=== PATIENT | female | born 1980 | race Caucasian/White ===

== ENCOUNTER 2016-12-22 10:21 | Inpatient (IN) | payer BC, OTHER ==
[~2016-12-22] VITALS: Ht 167.6 cm; Wt 74.0 kg
[2016-12-22 10:57] VITALS: Ht 167.6 cm; Wt 74.0 kg
[2016-12-22] MEDS ORDERED: LACTATED RINGER'S 1,000 ML IV ONE (11:30)
[2016-12-22 11:59] LABS: ADD UMIC YES; UR ASCORBIC ACID NEGATIVE (NEGATIVE); UR BACTERIA FEW /HPF (NONE SEEN); UR BILIRUBIN (Dip) NEGATIVE (NEGATIVE); UR BLOOD (Dip) NEGATIVE (NEGATIVE); UR CLARITY SLIGHTLY CLOUDY (CLEAR); UR COLOR AMBER (YELLOW); UR GLUCOSE (Dip) NEGATIVE (NEGATIVE); UR KETONES (Dip) NEGATIVE (NEGATIVE); UR LEUKOCYTE ESTERASE (Dip) 2+ Leu/ul (NEGATIVE); UR MUCUS MODERATE /HPF (NONE SEEN); UR NITRITE (Dip) NEGATIVE (NEGATIVE); UR RBC 3 /HPF (0-5); UR SQUAMOUS EPITHELIAL CELL FEW /HPF (FEW); UR TOTAL PROTEIN (Dip) 1+ mg/dl (NEGATIVE); UR UROBILINOGEN (Dip) 1+ mg/dL (NEGATIVE)
[2016-12-22] MEDS: LACTATED RINGER'S 1,000 ML IV SCH ×2 (13:15→21:08)
[2016-12-22 13:29] LABS: BASOPHILS % 0.3 % (0.0-2.0); EOSINOPHILS # 0.1 10^3/ul (0.0-0.5); EOSINOPHILS % 0.5 % (0.0-7.0); HEMOGLOBIN 10.8 g/dl (12.0-16.0); LYMPHOCYTES # 1.9 10^3/ul (0.8-2.9); LYMPHOCYTES % 15.4 % (15.0-51.0); MEAN CORPUSCULAR HEMOGLOBIN 26.9 pg (29.0-33.0); MEAN CORPUSCULAR HGB CONC 31.8 g/dl (32.0-37.0); MEAN CORPUSCULAR VOLUME 84.8 fl (82.0-101.0); MEAN PLATELET VOLUME 10.5 fl (7.4-10.4); MONOCYTE # 0.9 10^3/ul (0.3-0.9); MONOCYTES % 7.5 % (0.0-11.0); NEUTROPHIL # 9.4 10^3/ul (1.6-7.5); NEUTROPHILS % 75.3 % (39.0-77.0); PLATELET COUNT 341 10^3/UL (140-415); RED BLOOD COUNT 4.01 10^6/ul (4.20-5.40); RED CELL DISTRIBUTION WIDTH 14.1 % (11.5-14.5); WHITE BLOOD COUNT 12.5 10^3/ul (4.8-10.8)
[2016-12-22] MEDS ORDERED: OXYTOCIN 30 UNITS/LR 500 ML IV PRN (13:30)
[2016-12-22] MEDS ORDERED: OXYTOCIN 30 UNITS/LR 500 ML IV SCH (13:30)
[2016-12-22] MEDS ORDERED: METHYLERGONOVINE 0.2 MG INJ IM PRN (13:30)
[2016-12-22] MEDS ORDERED: CEFAZOLIN 2 GM/50 ML (PMX) 50 ML IV SCH (13:30)
[2016-12-22] MEDS ORDERED: CARBOPROST 250 MCG INJ IM PRN (13:30)
[2016-12-22] MEDS ORDERED: MISOPROSTOL 200 MCG TAB PR PRN (13:30)
[2016-12-22 13:46] LABS: INR 0.91; PARTIAL THROMBOPLASTIN TIME 26.7 Sec (25.0-35.0); PROTIME 12.2 Sec (12.2-14.2)
--- NOTE | 2016-12-22 15:07 | TRIAGE ---
OB Triage Datetime Report Generated by CPN: 12/22/2016 15:06 Datetime: 12/22/2016 14:50 Time of Arrival: 12/22/2016 12:50 EGA: 37.6 Arrived By: Transfer Arrived From: Other Unit in Hospital Datetime: 12/22/2016 14:45 Assessment Type: Admission Assessment Time of Arrival: 12/22/2016 10:15 EGA: 37.6 Arrived By: Ambulatory Arrived From: Home Chief Complaint: UC _ R/O SROM Movement: Present Contractions: Regular Time Contractions Began: 12/21/2016 23:00 Rupture of Membranes: Unsure Vaginal Bleeding: None Vaginal Discharge: Denies Recent Sexual Intercouse: Denies Abdominal Trauma: Not Applicable Time Provider Notified: 12/22/2016 11:03 Provider Notified: Delshad Initial Plan: NST, ROM plus, UA Maternal Assessment Level of Consciousness: Fully Conscious DTR's/Clonus: DTRs 2+; No Clonus Headache: Denies Blurred Vision: No Respiratory Effort: Unlabored; Regular Rhythm; Equal Expansion Breath Sounds, Left: Clear and Equal Breath Sounds, Right: Clear and Equal Nausea/Vomiting: Denies RUQ Epigastric Pain: Denies Lower Extremities Edema: None Degree: None Upper Extremities Edema: None Degree: None Facial Edema: None Fall Risk Assessment History of Falling: (0) No Secondary Diagnosis: (0) No Ambulatory Aid: (0) Bedrest/Nurse Assist IV Therapy: (20) Yes Gait: (0) Normal/Bedrest/Immobile Mental Status: (0) Oriented to Own Ability Fall Score: 20 Fall Risk Score Definition: No Risk: No action required Pain Assessment Pain Scale: 3 Pain Presence: Intermittent Pain Type: Contraction Pain Location: Abdomen; Back Pain Goal: 0 Datetime: 12/22/2016 10:45 Assessment Type: Triage Maternal Assessment Level of Consciousness: Fully Conscious DTR's/Clonus: DTRs 2+; No Clonus Headache: Denies Blurred Vision: No Respiratory Effort: Unlabored; Regular Rhythm; Equal Expansion Breath Sounds, Left: Clear and Equal Breath Sounds, Right: Clear and Equal Nausea/Vomiting: Denies RUQ Epigastric Pain: Denies Lower Extremities Edema: None Degree: None Upper Extremities Edema: None Degree: None Facial Edema: None Fall Risk Assessment History of Falling: (0) No Secondary Diagnosis: (0) No Ambulatory Aid: (0) Bedrest/Nurse Assist IV Therapy: (0) No Gait: (0) Normal/Bedrest/Immobile Mental Status: (0) Oriented to Own Ability Fall Score: 0 Fall Risk Score Definition: No Risk: No action required Datetime: 12/22/2016 10:34 Stage of : OB Triage
[2016-12-22] MEDS ORDERED: BUTORPHANOL 2 MG INJ IV ONE (18:30)
[2016-12-22] MEDS ORDERED: OXYTOCIN 30 UNITS/LR 500 ML BAG IV ONE (21:00)
[2016-12-22] MEDS ORDERED: CEFAZOLIN 1 GM INJ ONE (21:00)
--- NOTE | 2016-12-22 21:35 | HP ---
Date/Time of Note Date/Time of Note DATE: 12/22/16 TIME: 21:29 OB - History Hx of Present Chief Complaint: contractions Estimated Due Date: Jan 06, 2017 : 2 Para: 1 Spontaneous : 0 Therapeutic : 0 Care: Good Care Ultrasounds: Normal mid trimester US Obstetrical Complications: None Medical Complications: None Past Family/Social History * Past Medical, Surgical, Family and Obstetric Histories reviewed from chart. OB Admission Exam Physical Exam HEENT: WNL Heart: Rhythm Normal Lungs: Clear, Equal Abdomen: WNL Extremities: Normal Reflexes: Normal Cervical Dilatation: Fingertip Effacement: 50% Station: -1 Membranes: Intact Heart Rate: 130's Accelerations: Accelerations Present Decelerations: No Decelerations Varibility: Moderate Contractions on Admission: < 5 Minutes Apart Last 72 hours Lab Results CBC & BMP 12/22/16 12:00 OB Assessment/Plan Reason for admission: section Other Assessment: Previous with contractions Plan: Section HARMOYN CALDWELL MD Dec 22, 2016 21:35
[2016-12-22] MEDS ORDERED: ONDANSETRON 4 MG INJ ONE (21:56)
[2016-12-22] MEDS ORDERED: morphine SULFATE/PF (10 MG/10 ML) INJ ONE (21:56)
[2016-12-22] MEDS ORDERED: OXYTOCIN 10 UNIT INJ ONE (21:56)
[2016-12-22] MEDS ORDERED: PHENYLephrine (100 MCG/ML) 5ML SYG ONE ×2 (21:56→22:29)
[2016-12-22] MEDS ORDERED: morphine 2 MG INJ IV PRN (23:30)
[2016-12-22] MEDS ORDERED: NALOXONE (0.4 MG/ML) INJ IV PRN (23:30)
[2016-12-22] MEDS ORDERED: DIPHENHYDRAMINE 50 MG INJ IV PRN (23:30)
--- NOTE | 2016-12-22 23:39 | SIPON ---
Date/Time of Note Date/Time of Note DATE: 12/22/16 TIME: 23:34 Operative Report Preoperative Diagnosis 37 weeks and 6 days with previous and contractions, voluntary sterilization Postoperative Diagnosis Same Operation/Procedure Performed Repeat and BTL Surgeon Harmony Caldwell MD graduate research assistant: CIERA DUMONT MD Anesthesia Type: spinal Estimated Blood Loss: other (600 ml) Transfusion Required: no Specimens right and left Fallopian tubes Grafts/Implants: none Complications: no HARMONY CALDWELL MD Dec 22, 2016 23:39
[2016-12-23] VITALS (9 sets, daily range): BP systolic 93–107; BP diastolic 51–61; PULSE 69–87; RESP 16–20
[2016-12-23] MEDS ORDERED: ONDANSETRON 4 MG INJ IV PRN
--- NOTE | 2016-12-23 01:23 | OPR ---
DATE OF OPERATION: 12/22/2016 PREOPERATIVE DIAGNOSES: 1. at 37 weeks and 6 days with previous section and contractions. 2. Voluntary sterilization. POSTOPERATIVE DIAGNOSES: 1. at 37 weeks and 6 days with previous section and contractions. 2. Voluntary sterilization. OPERATION PERFORMED: Repeat low-transverse section and bilateral tubal ligation. SURGEON: Dr. Jackson. GEOLOGICAL AIDE: Dr. Herbert. ANESTHESIA: Spinal. ANESTHESIOLOGIST: Dr. Gunn. OPERATIVE PROCEDURE: The patient was taken to the operating room, and placed on the operating table. After successful spinal anesthesia was given, the patient was placed in the supine position. The area was prepared and draped in the usual sterile fashion. Spinal anesthesia was tested and was satisfactory. Using scalpel, Pfannenstiel incision was made about 2 fingerbreadths above the symphysis pubis. The incision was carried to the fascia. The fascia was incised and extended bilaterally with Simmons scissors. Two David's were used to separate the fascia from the muscle. The muscle was dissected down to the peritoneum. The peritoneum was secured with 2 Kellys and incised with Metzenbaum scissors. Using a scalpel, a small transverse incision was made on the lower segment of the uterus. Upon entering the uterine cavity, bandage scissors were inserted to extend the incision bilaterally, curved up. The baby was delivered from cephalic presentation. After suctioned clear of amniotic fluid, the baby was handed off to the team in attendance. Apgars were 9 and 9. The placenta was delivered without difficulty. The uterus was closed with #1 Monocryl continuous locked. After assuring hemostasis, both ovaries and tubes were inspected. All looked normal. The right fallopian tube was grasped with Tamaroa clamp. Using 0 plain suture ligature, a 5 cm segment of the right fallopian tube was doubly ligated. Using Metzenbaum scissors, a portion of the right fallopian tube above the ligated area was excised and sent to Pathology. The same procedure was repeated on the left fallopian tube. After assuring hemostasis, the peritoneum was closed with 2-0 Vicryl continuous. The fascia was closed with #1 Vicryl continuous in 2 segments. The skin was closed with tone. ESTIMATED BLOOD LOSS: 600 mL. COUNTS: All counts were correct. Dictated By: Nicholas Jackson MD /tricia/kelvin /Document#: [id number]
[2016-12-23] MEDS: LACTATED RINGER'S 1,000 ML IV SCH ×3 (01:29→17:29)
[2016-12-23] MEDS ORDERED: OXYTOCIN 30 UNITS/LR 500 ML IV PRN (01:30)
[2016-12-23] MEDS ORDERED: LANOLIN 7 GM TUBE TOP PRN (01:30)
[2016-12-23] MEDS ORDERED: MISOPROSTOL 200 MCG TAB PR PRN (01:30)
[2016-12-23] MEDS ORDERED: METHYLERGONOVINE 0.2 MG INJ IM PRN (01:30)
[2016-12-23] MEDS ORDERED: CARBOPROST 250 MCG INJ IM PRN (01:30)
[2016-12-23] MEDS: KETOROLAC 30 MG INJ IV PRN ×2 (01:51→16:26)
[2016-12-23] MEDS: OXYTOCIN 30 UNITS/LR 500 ML IV SCH ×2 (04:53→08:46)
[2016-12-23] MEDS: SENNA/DOCUSATE NA (8.6MG/50MG) TAB PO SCH ×2 (08:47→21:29)
[2016-12-23 09:25] LABS: BASOPHILS % 0.2 % (0.0-2.0); EOSINOPHILS % 0.2 % (0.0-7.0); HEMATOCRIT 31.8 % (37.0-47.0); HEMOGLOBIN 10.3 g/dl (12.0-16.0); LYMPHOCYTES # 1.7 10^3/ul (0.8-2.9); LYMPHOCYTES % 12.7 % (15.0-51.0); MEAN CORPUSCULAR HEMOGLOBIN 27.1 pg (29.0-33.0); MEAN CORPUSCULAR HGB CONC 32.4 g/dl (32.0-37.0); MEAN CORPUSCULAR VOLUME 83.7 fl (82.0-101.0); MONOCYTE # 0.7 10^3/ul (0.3-0.9); MONOCYTES % 5.6 % (0.0-11.0); NEUTROPHIL # 10.8 10^3/ul (1.6-7.5); NEUTROPHILS % 80.8 % (39.0-77.0); PLATELET COUNT 283 10^3/UL (140-415); WHITE BLOOD COUNT 13.3 10^3/ul (4.8-10.8)
--- NOTE | 2016-12-23 18:18 | QN ---
Documentation Comment No complaint Afebrile VSS Abdomen soft ND POD #1 Stable Ambulate Advance diet HARMONY CALDWELL MD Dec 23, 2016 18:18
[2016-12-23] MEDS ORDERED: OXYCODONE/ACETAMINOPHEN (5/325) TAB PO PRN ×2 (21:45)
[2016-12-23] MEDS: IBUPROFEN 800 MG TAB PO SCH (23:11)
[2016-12-24] MEDS: LACTATED RINGER'S 1,000 ML IV SCH ×2 (01:29→09:29)
[2016-12-24 04:00] VITALS: BP 98/58; RESP 18
[2016-12-24] MEDS: IBUPROFEN 800 MG TAB PO SCH ×3 (06:05→21:50)
[2016-12-24] MEDS: SENNA/DOCUSATE NA (8.6MG/50MG) TAB PO SCH ×2 (09:29→21:50)
[2016-12-24 09:30] VITALS: BP 104/60; PULSE 80; RESP 16
[2016-12-24 16:15] VITALS: BP 106/68; PULSE 82; RESP 17
--- NOTE | 2016-12-24 18:37 | QN ---
Documentation Comment No complaint Afebrile VSS Abdomen soft POD #2 Stable Continue present care. HARMONY CALDWELL MD Dec 24, 2016 18:37
--- NOTE | 2016-12-24 18:41 | DS ---
Date/Time of Note Date/Time of Note DATE: 12/24/16 TIME: 18:38 Obstetrical Discharge Record Final Diagnosis Final Diagnosis: Term delivered Vaginal Delivery Obstetrical Delivery: Bilateral Tubal Ligation Section Section: Repeat Condition on Discharge Physical Assessment Voiding: Yes Bowel Movement: Yes Breast: Soft, non-tender Fundus: Firm Abdomen and Incision: Incision intact Calf Tenderness: No Patient Condition: Stable HARMONY CALDWELL MD Dec 24, 2016 18:41
[2016-12-24 20:00] VITALS: BP 110/61; PULSE 81; RESP 20
[2016-12-25 04:00] VITALS: BP 112/76; PULSE 79; RESP 18
[2016-12-25] MEDS: IBUPROFEN 800 MG TAB PO SCH (06:00)
[2016-12-25 08:00] VITALS: BP 110/59; PULSE 81; RESP 16
[2016-12-25] MEDS ORDERED: DIPHTH/TET/ACEL PERTUSS (ADULT) 0.5 ML VIAL IM* ONE (09:00)
[2016-12-25] MEDS: SENNA/DOCUSATE NA (8.6MG/50MG) TAB PO SCH (09:57)
== END 2016-12-25 13:45 | disposition home or self-care (01) | DRG 766 ==
LOC: L-D 10:21 → OBT 10:21 → L-D 13:00 → PP1 12-23 01:35
PROVIDERS: ADMIT Obstetrics & Gynecology; ATTEND Obstetrics & Gynecology
PROC: 0UB70ZZ Excision of Bilateral Fallopian Tubes, Open Approach (ICD-10-PCS; 2016-12-22)
PROC: 10D00Z1 Extraction of Products of Conception, Low, Open Approach (ICD-10-PCS; principal; 2016-12-22 22:15)
DX: O34.219 Maternal care for unspecified type scar from previous cesarean delivery (principal); Z37.0 Single live birth; Z3A.37 37 weeks gestation of pregnancy
CPT/HCPCS: 36415; 81001; 84112; 85025; 85610; 85730; 86592; 86850; 86900; 86901; 87340; 88302; 90715; 94760; 99464; G0463; J0595; J0690; J1885; J2274; J2370; J2405; J2590; J7120

== ENCOUNTER 2016-12-29 12:14 | Emergency (ER) | payer BC, OTHER ==
[~2016-12-29] VITALS: Wt 71.0 kg
--- NOTE | 2016-12-29 12:38 | ERD ---
ER Documentation Chief Complaint Date/Time DATE: 12/29/16 TIME: 12:36 Chief Complaint C SECTION STAPLE REMOVAL HPI Patient is a 36-year-old female who is status post performed last Sunday and she is here requesting her tone to be removed. She states because of insurance reasons she is unable to see her surgeon again. She has no other complaints. No bleeding or drainage from the wound no redness or fevers. ROS All systems reviewed and are negative except as per history of present illness. Medications Home Meds No Active Prescriptions or Reported Meds Allergies Allergies: Coded Allergies: No Known Drug Allergy (Verified Allergy, Unknown, 03/27/08) FmHx Family History: No diabetes Physical Exam Vitals Vital Signs Date Time Temp Pulse Resp B/P Pulse Ox O2 Delivery O2 Flow Rate FiO2 12/29/16 12:17 98.0 71 18 119/73 99 Physical Exam Const: [] Head: Atraumatic Eyes: Normal Conjunctiva ENT: Normal External Ears, Nose and Mouth. Neck: Full range of motion..~ No meningismus. Resp: Clear to auscultation bilaterally Cardio: Regular rate and rhythm, no murmurs Abd: Soft, non tender, non distended. Normal bowel sounds Skin: Healing surgical scar in the lower abdomen with tone in place no surrounding erythema or edema Procedures/MDM Patient is here for staple remover however I think she should wait a couple more days and I recommend she return in 2-3 days for another wound check and possible removal at that time. Her wound is healing appropriately without any evidence of infection. Patient counseled regarding my diagnostic impression and care plan. Prior to discharge all questions answered. Pt agrees with treatment plan and understands strict return precautions. Pt is instructed to follow up with primary care provider within 24-48 hours. Precautionary instructions provided including instructions to return to the ER if not improving or for any worsening or changing symptoms or concerns. Departure Diagnosis: Primary Impression: Suture check Condition: Stable Patient Instructions: Suture Care Additional Instructions: Call your primary care doctor TOMORROW for an appointment during the next 1-2 days.See the doctor sooner or return here if your condition worsens before your appointment time. JOHN MUKHERJEE PA-C Dec 29, 2016 12:38
== END 2016-12-29 12:41 | disposition home or self-care (01) ==
LOC: FTE 12:14
DX: Z48.02 Encounter for removal of sutures (principal)
CPT/HCPCS: 99281